=== PATIENT | male | born 1970 | race Caucasian/White ===

== ENCOUNTER 2020-01-05 12:29 | Emergency (ER) | payer OTHER ==
[~2020-01-05] VITALS: Ht 177.8 cm; Wt 112.5 kg
[2020-01-05 12:34] VITALS: BP 154/81; Ht 177.8 cm; Wt 112.5 kg
== END 2020-01-05 15:50 | disposition home or self-care (01) ==
LOC: ED 12:29
DX: T78.1XXA Other adverse food reactions, not elsewhere classified, initial encounter (principal); L29.9 Pruritus, unspecified; I10 Essential (primary) hypertension; R06.02 Shortness of breath; X58.XXXA Exposure to other specified factors, initial encounter
CPT/HCPCS: J2930; J7613; Q0163